=== PATIENT | female | born 1995 | race American Indian/Alaskan Native ===

== ENCOUNTER 2020-02-29 16:25 | Observation (INO) | payer OTHER ==
[2020-02-29] MEDS ORDERED: Betamethasone Acetate/Betamethasone Sod Phosphate 30 MG/5 ML MDV IM ONE (17:16)
[2020-02-29] MEDS ORDERED: Ondansetron 4 MG/2 ML SDV IVPUSH PRN (19:04)
[2020-02-29] MEDS ORDERED: Acetaminophen 325 MG Tab PO PRN (19:04)
[2020-02-29] MEDS ORDERED: Sodium Chloride 0.9% 10 ML Syringe FLUSH PRN (19:04)
[2020-02-29] MEDS ORDERED: NIFEdipine 10 MG Cap PO PRN (19:07)
[2020-02-29] MEDS ORDERED: Lactated Ringers 1,000 ML IV SCH (19:15)
[2020-02-29] MEDS ORDERED: NIFEdipine 10 MG Cap PO ONE (19:30)
[2020-02-29] MEDS: Lactated Ringers 1,000 ML IV SCH (20:03)
[2020-02-29] MEDS: NIFEdipine 10 MG Cap PO SCH (20:57)
[2020-02-29] MEDS ORDERED: hydrOXYzine HCl 25 MG Tab PO PRN (22:28)
[2020-03-01] MEDS: NIFEdipine 10 MG Cap PO SCH ×2 (03:11→08:52)
[2020-03-01] MEDS: Lactated Ringers 1,000 ML IV SCH (03:12)
[2020-03-01 08:53] VITALS: BP 119/72
[2020-03-01 09:18] VITALS: PULSE 95
--- NOTE | 2020-03-01 12:38 | HP ---
CHIEF COMPLAINT: Contractions and vaginal bleeding. HISTORY OF PRESENT ILLNESS: A 24-year-old 2, para 0-0-1-0, currently at 34-2/7 weeks' gestation, presented to the clinic today for routine OB visit reporting loss of her mucus plug on Friday and continued discharge with small amounts of mucus plugging and occasional bleeding, sometimes only enough to show up on the toilet paper, at other times enough to saturate her panties. Good movement. No severe pain. Reports contractions started this morning and at the time of her visit were about every 10 to 12 minutes, but not always consistent and vary in strength. She was not sure if they were [place] contractions or if she should be more concerned. Otherwise, denies any specific problems. Blood type AB positive. Antibody screen negative. Rubella immune. Syphilis negative, both in the 1st and 3rd trimesters. Urine culture negative. Hepatitis B negative. HIV negative. Gonorrhea and chlamydia negative. TSH normal. Hepatitis C negative. Wet prep negative. 1-hour glucose tolerance test of 142, 3-hour results normal. Most recent hemoglobin 11.8 and platelets of 185 on 01/18/2020. PAST MEDICAL HISTORY: History of herpes at age 19, irregular periods, and prior Nexplanon use. SURGICAL HISTORY: EGD with biopsies in 2016, humerus surgery at age 6, D and C in November of 2017, and wisdom teeth extraction at 20 years of age. FAMILY HISTORY: Mother with kidney stones, high blood pressure, and diabetes. Father, Crohn disease and blood clots. Sister, kidney stones. Maternal grandmother, thyroid and cervical cancers. Maternal grandfather, prostate and colon cancers. Paternal grandmother, alive and well. Paternal grandfather is unknown. There is no family history of ulcerative colitis, celiac disease, anesthesia problems, bleeding problems, defects, or cystic fibrosis. 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. Her significant other, Israel Antunez is overweight, but otherwise has no health problems. His father had a tumor of the spinal cord and was paralyzed from the waist down, and Irsael's family has 3 or 4 sets of twins. REVIEW OF SYSTEMS: Pertinent positives and negatives under the history of present illness. No fevers, chills, chest pain, shortness of breath, headaches, blurry vision, skin rashes, edema, or other acute concerns. OBJECTIVE: Vital Signs: Temperature 99.1, pulse 85, blood pressure 121/80, respiratory rate of 14. Head: Normocephalic, atraumatic. Grossly normal features. Heart: Regular without murmur. Lungs: Clear to auscultation bilaterally. Abdomen: Gravid, soft, nontender. Palpation of contractions are medium consistency. [place] picking up contractions about every 3 to 4 minutes. heart rate baseline 130 beats per minute. Moderate gfkh-uf-gtnu variability. Accelerations noted. No decelerations or variables. Category 1 tracing. Cervix: 1-1/2 cm dilated, 75% effaced, floating bag of water intact and cervix is very posterior, but soft. Speculum exam, cervix appeared closed. There was some bloody mucousy drainage present in the vagina. Extremities: No edema, erythema, or tenderness noted. LABORATORY DATA: Laboratories performed at the clinic: fibronectin positive, wet prep negative, and urinalysis negative. ASSESSMENT: 1. 34-2/7 weeks intrauterine with threatened labor. 2. History of herpes genitalis, needs to start on Valtrex 500 mg b.i.d. for prophylaxis, anticipated at 36 weeks; however, plan on starting sooner because of her contractions. 3. History of therapeutic . PLAN: At this time, patient will remain in the hospital overnight. She was started on nifedipine protocol and she will be allowed a dose of Vistaril for bedtime to help her sleep at this time since she is threatened labor. We will see if we can get these contractions to stop and hopefully not need to transfer her out of the area. Otherwise, I did call [facility] because her family lives there, however, their NICU is currently full and that would not be an appropriate transfer location as her baby would then be sent out to either [place] or [place]. If she does progress into labor, anticipate at this time that we would be calling [facility] for transfer because they have space for both mother and baby at their hospital currently. The patient was advised that this may change within the next few days if we are able to keep her that long. I would like to keep her in the hospital at least until her 2nd dose of betamethasone is administered and symptoms are controlled. We will consider sending her home on nifedipine, although if we are able to stop labor that may be potentially discontinued prior to discharge and it will pend her clinical course. The patient's questions have been answered and she was in agreement with the plan. [facility] /[id number]
--- NOTE | 2020-03-01 18:20 | OBOUT ---
DATE: 03/01/2020 PROCEDURE: Nonstress test #2. TIME OF NST: 2:49 a.m. REPORT: Baseline heart rate 125 beats per minute. Moderate srvr-yq-vxsb variability. Accelerations noted. [place] shows no contractions. INTERPRETATION: Category 1 reassuring and reactive NST. [facility] /[id number]
--- NOTE | 2020-03-01 18:23 | OBOUT ---
DATE: 03/01/2020 PROCEDURE: Nonstress test #3. TIME: 8:20 a.m. REPORT: Baseline heart rate 120 beats per minute. Moderate caba-fq-vfgt variability. Accelerations noted. No decels or variables. [place] shows no contractions. Category 1 reassuring and reactive NST. [facility] /[id number]
--- NOTE | 2020-03-01 19:08 | OBOUT ---
DATE: 02/29/2020 PROCEDURE: Nonstress test #1. TIME: Started at approximately 5 p.m. REPORT: Baseline heart rate 130 beats per minute. Moderate spig-zh-vyzq variability. Accelerations noted. No decels or variables. Contractions every 3 minutes. Category 1 reassuring and reactive NST. [facility] /[id number]
== END 2020-03-01 13:30 | disposition home or self-care (01) ==
LOC: DL.MS 16:25 → DL.OBCHECK 16:25 → DL.MS 19:04
PROVIDERS: ADMIT Family Medicine; ATTEND Family Medicine
DX: O46.93 Antepartum hemorrhage, unspecified, third trimester (principal); Z3A.34 34 weeks gestation of pregnancy
CPT/HCPCS: 59025; 82731; 96372; A9270-GY; G0378; J0702; J7120

== ENCOUNTER 2024-06-03 06:30 | Observation (INO) | payer MEDICAID ==
[2024-06-03 07:08] LABS: HEMATOCRIT 34.7 % (37.0-47.0); HEMOGLOBIN 12.1 g/dL (12.0-16.0); MEAN CORPUSCULAR HEMOGLOBIN 32.2 pg (27.0-34.0); MEAN CORPUSCULAR HGB CONC 34.9 g/dL (33.0-35.0); MEAN CORPUSCULAR VOLUME 92.3 fL (80-100); RED BLOOD CELL COUNT 3.76 10^6/uL (4.2-5.4); WHITE BLOOD CELL COUNT,WBC 9.1 10^3/uL (5.0-10.0)
[2024-06-03] MEDS ORDERED: fentaNYL 100 MCG/2 ML SDV IVPUSH PRN (07:23)
[2024-06-03] MEDS ORDERED: Carboprost Tromethamine 250 MCG/1 ML Amp IM PRN (07:23)
[2024-06-03] MEDS ORDERED: Acetaminophen 325 MG Tab PO PRN (07:23)
[2024-06-03] MEDS ORDERED: Lidocaine 1% 30 ML SDV INJECT ONE (07:23)
[2024-06-03] MEDS ORDERED: Ondansetron 4 MG/2 ML SDV IVPUSH PRN (07:23)
[2024-06-03] MEDS ORDERED: Lactated Ringers 1,000 ML IV ONE (07:23)
[2024-06-03] MEDS ORDERED: Methylergonovine 0.2 MG/1 ML Amp IM PRN (07:23)
[2024-06-03] MEDS ORDERED: Sodium Chloride 0.9% 10 ML Syringe FLUSH PRN (07:23)
[2024-06-03] MEDS ORDERED: Tranexamic Acid 1,000 MG in Sodium Chloride 0.9% 100 ML IV PRN (07:23)
[2024-06-03] MEDS ORDERED: Oxytocin/Lactated Ringers 30 UNIT/500 ML BAG IV SCH (07:30)
[2024-06-03] MEDS: Lactated Ringers 1,000 ML IV SCH (07:30)
[2024-06-03] MEDS ORDERED: Oxytocin/Normal Saline 30 UNIT/500 ML BAG IV SCH ×2 (07:30)
[2024-06-03] MEDS: valACYclovir 1,000 MG Tab PO SCH (11:44)
[2024-06-03 13:56] VITALS: BP 111/68; PULSE 93
== END 2024-06-03 13:44 | disposition home or self-care (01) ==
LOC: DL.OBCHECK 06:30 → DL.OB 07:00
PROVIDERS: ADMIT Student in an Organized Health Care Education/Training Program; ATTEND Student in an Organized Health Care Education/Training Program
DX: O47.1 False labor at or after 37 completed weeks of gestation (principal); O99.013 Anemia complicating pregnancy, third trimester; D64.9 Anemia, unspecified; Z3A.37 37 weeks gestation of pregnancy
CPT/HCPCS: 36415; 85027; A9270; J7120; G0378

== ENCOUNTER 2024-06-11 20:35 | Inpatient (IN) | payer MEDICAID ==
[2024-06-11] MEDS: Lactated Ringers 1,000 ML IV SCH (20:58)
[2024-06-11] MEDS ORDERED: Methylergonovine 0.2 MG/1 ML Amp IM PRN (21:26)
[2024-06-11] MEDS ORDERED: Carboprost Tromethamine 250 MCG/1 ML Amp IM PRN (21:26)
[2024-06-11] MEDS ORDERED: Sodium Chloride 0.9% 10 ML Syringe FLUSH PRN (21:26)
[2024-06-11] MEDS ORDERED: Ondansetron 4 MG/2 ML SDV IVPUSH PRN (21:26)
[2024-06-11] MEDS ORDERED: Acetaminophen 325 MG Tab PO PRN (21:26)
[2024-06-11] MEDS ORDERED: Tranexamic Acid 1,000 MG in Sodium Chloride 0.9% 100 ML IV PRN (21:26)
[2024-06-11 21:31] LABS: HEMATOCRIT 36.6 % (37.0-47.0); HEMOGLOBIN 12.8 g/dL (12.0-16.0); MEAN CORPUSCULAR HEMOGLOBIN 32.5 pg (27.0-34.0); MEAN CORPUSCULAR VOLUME 92.9 fL (80-100); RED BLOOD CELL COUNT 3.94 10^6/uL (4.2-5.4); WHITE BLOOD CELL COUNT,WBC 9.7 10^3/uL (5.0-10.0)
[2024-06-11] MEDS ORDERED: Calcium Carbonate 500 MG Tab.Chew PO PRN (21:49)
[2024-06-11] MEDS ORDERED: Phenylephrine HCl In 0.9% NaCl 1 MG/10 ML Syringe IVPUSH PRN (22:13)
[2024-06-11] MEDS ORDERED: ePHEDrine 50 MG/ML SDV IVPUSH PRN (22:13)
[2024-06-11] MEDS ORDERED: Ropivacaine 200 MG in Premix Bag 1 BAG EPIDUR SCH (22:15)
[2024-06-11] MEDS: Oxytocin/Lactated Ringers 30 UNIT/500 ML BAG IV SCH (23:54)
[2024-06-12] MEDS ORDERED: Misoprostol 100 MCG Tab RECTAL PRN (00:05)
[2024-06-12] MEDS ORDERED: Hydrocortisone 2.5% Crm 30 GM Tube TOP PRN (00:05)
[2024-06-12] MEDS ORDERED: Carboprost Tromethamine 250 MCG/1 ML Amp IM PRN (00:05)
[2024-06-12] MEDS ORDERED: Simethicone 80 MG Tab.Chew PO PRN (00:05)
[2024-06-12] MEDS ORDERED: Oxytocin 10 Units/1 ML SDV IM PRN (00:05)
[2024-06-12] MEDS ORDERED: Tranexamic Acid 1,000 MG in Sodium Chloride 0.9% 100 ML IV PRN (00:05)
[2024-06-12] MEDS ORDERED: Acetaminophen 325 MG Tab PO PRN (00:05)
[2024-06-12] MEDS ORDERED: Sodium Chloride 0.9% 10 ML Syringe FLUSH PRN (00:05)
[2024-06-12] MEDS ORDERED: Calcium Carbonate 500 MG Tab.Chew PO PRN (00:06)
[2024-06-12] MEDS: Lactated Ringers 1,000 ML IV ONE (00:48)
[2024-06-12] MEDS: Witch Hazel Medicated Pads 100/Jar TOP PRN (01:06)
[2024-06-12] MEDS: Benzocaine/Menthol 20%-0.5% Spray 78 GM Cannister TOP PRN (01:07)
[2024-06-12] MEDS: Ibuprofen 800 MG Tab PO SCH (01:08)
[2024-06-12] MEDS: Lidocaine 1% 30 ML SDV INJECT ONE (02:44)
[2024-06-12] MEDS: Docusate Sodium 100 MG Cap PO PRN (09:03)
[2024-06-12] MEDS: Prenatal Multivitamin with Calcium/Folic Acid/Iron Tab PO SCH (09:03)
[2024-06-13 11:47] VITALS: BP 115/73; PULSE 79
== END 2024-06-13 10:15 | disposition home or self-care (01) | DRG 806 ==
LOC: DL.OBCHECK 20:35 → DL.OB 21:26 → OBSVTOIN 23:48
PROVIDERS: ADMIT Family Medicine; ATTEND Family Medicine
PROC: 10907ZC Drainage of Amniotic Fluid, Therapeutic from Products of Conception, Via Natural or Artificial Opening (ICD-10-PCS; principal; 2024-06-11)
PROC: 10E0XZZ Delivery of Products of Conception, External Approach (ICD-10-PCS; principal; 2024-06-11)
PROC: 3E0R3BZ Introduction of Anesthetic Agent into Spinal Canal, Percutaneous Approach (ICD-10-PCS; principal; 2024-06-11)
DX: O99.02 Anemia complicating childbirth (principal); O98.32 Other infections with a predominantly sexual mode of transmission complicating childbirth; Z37.0 Single live birth; Z3A.38 38 weeks gestation of pregnancy; Z86.16 Personal history of COVID-19
CPT/HCPCS: 36415; 51701; 59409; 85027; A9270-GY; C1729; J2590; J7120